=== PATIENT | male | born 1950 | race Caucasian/White ===

== ENCOUNTER 2025-03-07 09:00 | Emergency (ER) | payer BC ==
--- NOTE | 2025-03-07 09:12 | ERPHSYRPT ---
- History of Present Illness Time Seen by Provider: 03/07/25 09:04 Source: patient, EMS Exam Limitations: no limitations Physician History: 74-year-old white male patient brought to the emergency department by the student finance advisor service and is a patient Dr. Costello as well as urologist Dr. Boone. Patient underwent a TURP procedure relatively recently and had his Mendoza catheter removed. Last evening he noticed decreasing urine output and increasing suprapubic abdominal pain and spasm. The patient was given intravenous 100 mcg fentanyl and intravenous 4 mg Zofran and route to our facility by the student finance advisor service. This has improved his pain but has not relieved it. Patient is currently not on any antibiotics. Timing/Duration: yesterday Activites at Onset: none Quality: cramping, pressure Onset Location: suprapubic Pain Radiation: none Severity of Pain-Max: moderate Severity of Pain-Current: mild (To moderatepost fentanyl infusion) Modifying Factors: Improves With: analgesics (Approved but has not eliminated) Associated Symptoms: abdominal pain (Suprapubic) Prior abdominal problems: none Sexual intercourse history: non-contributory Allergies/Adverse Reactions: shrimp Allergy (Mild, Verified 03/22/15 00:24) Hives Home Medications: Lisinopril 10 mg [Zestril 10 MG] 10 mg PO DAILY 05/14/15 [History] Levothyroxine Sodium 150 Mcg [Synthroid 150 Mcg] 150 mcg PO DAILY 07/12/18 [History] Hx Tetanus, Diphtheria Vaccination/Date Given: Yes Hx Influenza Vaccination/Date Given: No Hx Pneumococcal Vaccination/Date Given: No Travel Risk - International Travel Have you traveled outside of the country in past 3 weeks: No - Emerging Infectious Disease Are you exhibiting symptoms associated with any current EIDs: No - Past Medical History Pertinent Past Medical History: Yes Neurological History: Other ENT History: No Pertinent History Cardiac History: Hypertension Respiratory History: No Pertinent History Endocrine Medical History: Hypothyroidism Musculoskeletal History: Arthritis, Rheumatoid Arthritis GI Medical History: GERD, Hernia History: Other Psycho-Social History: No Pertinent History Male Reproductive Disorders: Prostate Problems Other Medical History: FREQUENT KIDNEY STONES. ONLY HAS LEFT KIDNEY. right kidney removed d/t cancer. tourettes - Past Surgical History Past Surgical History: Yes Neuro Surgical History: No Pertinent History Cardiac: No Pertinent History Respiratory: No Pertinent History Gastrointestinal: No Pertinent History Genitourinary: Kidney Surgery Musculoskeletal: No Pertinent History Male Surgical History: Prostate Surgery Other Surgical History: 2 BIOPSIES ON PROSTATE-NEGATIVE REPORTS. 3 HERNIA REPAIRS. 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) - Social History Smoking Status: Current every day smoker How long have you smoked: 40 years Exposure to second hand smoke: Yes - Review of Systems Constitutional: No Symptoms Eyes: No Symptoms Ears, Nose, & Throat: No Symptoms, Throat Swelling Cardiac: No Symptoms Abdominal/Gastrointestinal: Abdominal Pain (Pubic tenderness to palpation) Genitourinary Symptoms: Urinary Retention Musculoskeletal: No Symptoms Skin: No Symptoms Neurological: No Symptoms Psychological: No Symptoms Endocrine: No Symptoms Hematologic/Lymphatic: No Symptoms Immunological/Allergic: No Symptoms All Other Systems: Reviewed and Negative - Nursing Vital Signs Nursing Vital Signs: Initial Vital Signs Temperature 96.7 F 03/07/25 09:00 Pulse Rate 57 L 03/07/25 09:00 Respiratory Rate 18 03/07/25 09:00 Blood Pressure 158/71 03/07/25 09:00 O2 Sat by Pulse Oximetry 99 03/07/25 09:00 Pain Scale Pain Intensity 2 - Physical Exam General Appearance: no apparent distress, alert, anxiety Eye Exam: PERRL/EOMI, eyes nml inspection Ears, Nose, Throat Exam: normal ENT inspection, moist mucous membranes Neck Exam: normal inspection, non-tender, supple, full range of motion Respiratory Exam: No chest tenderness, No respiratory distress Gastrointestinal/Abdomen Exam: tenderness (Numbness to palpation suprapubic region), distention (Mild suprapubic region) Rectal Exam: not done Back Exam: normal inspection, normal range of motion, No CVA tenderness, No vertebral tenderness Extremity Exam: normal inspection, normal range of motion, pelvis stable Neurologic Exam: alert, oriented x 3, cooperative, 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 Skin Exam: normal color, warm, dry Lymphatic Exam: No adenopathy SpO2 Interpretation: normal O2 Delivery: Room Air - Course Nursing assessment & vital signs reviewed: Yes Ordered Tests: Active Orders 24 hr Category Date Time Status Catheter-Dunnellon Mendoza STAT Care 03/07/25 09:17 Active CULTURE,URINE Stat Lab 03/07/25 09:17 Received UA W/RFX UR CULTURE Stat Lab 03/07/25 09:17 Completed Lab/Rad Data: Laboratory Results 03/07/25 Range/Units 09:17 Urine Color Dark Yellow (Yellow) Urine Appearance Clear (Clear) Urine pH 8.0 (4.6-8.0) Ur Specific Laie <=1.005 (1.005-1.030) Urine Protein Trace A (Negative) Urine Glucose (UA) Negative (Negative) mg/dL Urine Ketones Trace A (Negative) Urine Blood Moderate A (Negative) Urine Nitrite Positive A (Negative) Urine Bilirubin Negative (Negative) Urine Urobilinogen 1.0 A (0.2) mg/dL Ur Leukocyte Esterase Moderate A (Negative) U Hyaline Cast (Auto) NONE SEEN (0-2) /LPF Urine Microscopic RBC 0-2 (0-5) /HPF Urine Microscopic WBC 6-10 A (0-5) /HPF Ur Epithelial Cells None Seen (None Seen) /HPF Urine Bacteria Moderate A (None Seen) /HPF Urine Culture Reflexed YES (NO) - Progress Progress: improved, re-examined Progress Note: 03/07/25 09:15 Medical decision making and assignment of low to moderate complexity of this patient's medical issue is based on review the patient's past medical history, reviewed patient's medication list, reviewed patient drug allergy list, history of present illness and physical findings on examination. The workup in this patient includes urinalysis as well as placement of a Mendoza catheter. Differential diagnosis includes but is not limited to urinary bladder spasm, urinary retention, urinary tract infection 03/07/25 10:14 I interpreted the patient's laboratory data results. Based on laboratory data results, the patient does have a significant urinary tract infection. Counseled pt/family regarding: lab results, diagnosis, need for follow-up Medical Desision Making - Independent Historian Additional History obtained from: Spouse, [employer]/EMT - Risk of complications Low Risk: Low risk of morbidity from additional dx testing or treatment The pt has a mod risk of morbidity or mortality based on: Need for prescription drug management - Departure Departure Disposition: Home Clinical Impression: Urinary retention, Urinary tract infection Condition: Stable Critical Care Time: No Referrals: SUSANA COSTELLO MD [Primary Care Provider, [facility]] - Follow up/PCP as directed Additional Instructions: Drink plenty of clear liquids. Take your antibiotic as prescribed. Call your urologist office today, 03/07/2025, to make arrangements for follow-up appointment in the next 3 to 5 days to determine when your Mendoza catheter should be removed. Prescriptions: Cefdinir 300 mg PO BID #[id number] cap
[2025-03-07 09:16] VITALS: TEMP 96.7
[2025-03-07 09:46] VITALS: PULSE 56; RESP 16
[2025-03-07 10:05] LABS: Glucose, Urine Negative (Negative); Protein,Urine Dip Trace (Negative); RBC 0-2 /HPF (0-5)
[2025-03-07 10:07] VITALS: BP 140/86; O2SAT 95
== END 2025-03-07 10:33 | disposition home or self-care (01) ==
LOC: ED 09:00
DX: N39.0 Urinary tract infection, site not specified (principal); R33.9 Retention of urine, unspecified; R10.2 Pelvic and perineal pain; I10 Essential (primary) hypertension; Z79.899 Other long term (current) drug therapy; Z72.0 Tobacco use